=== PATIENT | male | born 1945 | race African-American/Black ===

== ENCOUNTER 2016-10-02 07:00 | Emergency (ER) | payer MEDICARE, OTHER ==
[~2016-10-02] VITALS: Ht 180.3 cm; Wt 89.5 kg
[2016-10-02] MEDS ORDERED: LISI-661 PO (07:03)
[2016-10-02] MEDS ORDERED: AMLO-512 PO (07:03)
[2016-10-02 07:12] LABS: GLUCOSE,POINT OF CARE 110 MG/DL (70-110)
[2016-10-02] MEDS ORDERED: DiphenhydrAMINE HCL 50 MG/ML VIAL IVP ONE (07:45)
[2016-10-02] MEDS ORDERED: MethylPREDNISolone SOD SUCC 125 MG/2 ML VIAL IVP ONE (07:45)
[2016-10-02] MEDS ORDERED: RANITIDINE HCL 25 MG/ML 2 ML VIAL IVP ONE (07:45)
[2016-10-02 07:52] LABS: BASOPHILS # (AUTO) 0.03 K/uL (0.00-0.20); BASOPHILS % (AUTO) 0.5 % (0.0-2.0); EOSINOPHILS # (AUTO) 0.12 K/uL (0.00-0.70); EOSINOPHILS % (AUTO) 2.22 % (1.0-6.0); HEMATOCRIT 41.4 % (41-53); HEMOGLOBIN 13.9 g/dL (13.5-17.5); LYMPHOCYTES # (AUTO) 2.4 K/uL (1.0-4.8); LYMPHOCYTES % (AUTO) 44.7 % (22.0-44.0); MEAN CORPUSCULAR HEMOGLOBIN 29.2 pg (26.0-34.0); MEAN CORPUSCULAR HGB CONC 33.6 G/dL (31.0-37.0); MEAN CORPUSCULAR VOLUME 87 fL (80-100); MONOCYTES # (AUTO) 0.5 K/uL (0.1-1.0); MONOCYTES % (AUTO) 8.6 % (2.0-9.0); NEUTROPHILS # (AUTO) 2.4 K/uL (1.8-7.7); PLATELET COUNT (AUTO) 345 K/uL (150-450); RED BLOOD CELL COUNT(AUTO) 4.77 MIL/uL (4.50-5.90); RED CELL DISTRIBUTION WIDTH 15.4 % (11.5-14.5); WHITE BLOOD COUNT (AUTO) 5.4 K/uL (4.5-11.0)
[2016-10-02 07:59] LABS: ANION GAP 7 mmol/L (8-16); CALCIUM, TOTAL 9.6 mg/dL (8.8-10.5); CARBON DIOXIDE 29 mmol/L (22-29); CHLORIDE 98 mmol/L (98-107); CREATININE 1.27 mg/dL (0.60-1.30); GLOMERULAR FILTR. RATE CALC > 60 mL/min (>60); POTASSIUM 3.9 mmol/L (3.5-5.1); SODIUM SERUM 134 mmol/L (136-145); UREA NITROGEN, BLOOD 14 mg/dL (7-18)
[2016-10-02 08:05] LABS: ALANINE AMINOTRANSFERASE 20 U/L (12-78); ALBUMIN 3.8 g/dL (3.4-5.0); ASPARTATE AMINOTRANSFERASE 18 U/L (15-37); BILIRUBIN,TOTAL 0.5 mg/dL (0.1-1.0)
[2016-10-02 11:21] VITALS: BP 125/78
== END 2016-10-02 11:50 | disposition home or self-care (01) ==
LOC: EMS 07:02
DX: T78.3XXA Angioneurotic edema, initial encounter (principal); E11.9 Type 2 diabetes mellitus without complications; I10 Essential (primary) hypertension
CPT/HCPCS: 36415; 80053; 82962; 84484; 85025; 96374; 96375; 99285; J1200; J2780; J2930

== ENCOUNTER 2018-06-26 10:07 | Emergency (ER) | payer MEDICARE, OTHER ==
[~2018-06-26] VITALS: Ht 177.8 cm; Wt 88.6 kg
[~2018-06-26 10:07] MED LIST: AMLO-512 PO; LISI-661 PO
[2018-06-26] MEDS ORDERED: KETOROLAC TROMETHAMINE 60 MG/2 ML VIAL IM ONE (11:45)
[2018-06-26 12:08] VITALS: BP 128/72
== END 2018-06-26 12:09 | disposition home or self-care (01) ==
LOC: EMS 10:10
DX: L84 Corns and callosities (principal); M79.671 Pain in right foot; E11.9 Type 2 diabetes mellitus without complications; I10 Essential (primary) hypertension; Z79.899 Other long term (current) drug therapy
CPT/HCPCS: 96372; 99283; J1885

== ENCOUNTER 2020-04-14 17:07 | Emergency (ER) | payer MEDICARE, OTHER ==
[~2020-04-14] VITALS: Ht 180.3 cm; Wt 81.8 kg
[~2020-04-14 17:07] MED LIST changes: +AMLO-258 PO; -AMLO-512 PO; -LISI-661 PO; +LISI-893 PO
[2020-04-14] MEDS ORDERED: IBUPROFEN 800 MG TABLET PO ONE (18:00)
[2020-04-14 18:40] VITALS: BP 170/80
== END 2020-04-14 18:45 | disposition home or self-care (01) ==
LOC: EMS 17:07
DX: L84 Corns and callosities (principal)
CPT/HCPCS: 99282